=== PATIENT | male | born 1995 | race African-American/Black ===

== ENCOUNTER 2019-06-03 21:45 | Emergency (ER) | payer OTHER ==
[~2019-06-03] VITALS: Ht 167.6 cm; Wt 93.0 kg
[2019-06-03] MEDS ORDERED: PROAIR HFA8.5 GM INH ×2 (21:51→22:53)
[2019-06-03] MEDS ORDERED: FLOVENT DISKUS50 MCG INH (21:52)
[2019-06-03] MEDS ORDERED: PREDNISONE50 MG PO (22:53)
[2019-06-03 23:02] VITALS: BP 124/45
--- NOTE | 2019-06-04 19:16 | EKG ---
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[place] : 1995 Requested By: Weston Garza Order Number: [id number] MD: Yeison Do Measurements Intervals [place] Rate: 84 P: 64 WI: 169 QRS: 66 QRSD: 109 T: 39 QT: 359 QTc: 425 Interpretive Statements Sinus rhythm RSR' in V1 or V2, right VCD ST elevation early repolarization, less likely pericarditis Baseline wander in lead(s) V2,V6 No previous ECG available for comparison Electronically Signed On 06-04-2019 19:15:56 FOREIGN CORRESPONDENT by Yeison Do [email or web address] <ELECTRONICALLY SIGNED> By: Yeison Do MD, [facility] 06/04/191914 51 51 Yeison Do MD, [facility] /EPI
== END 2019-06-03 23:06 | disposition home or self-care (01) ==
LOC: ER 21:45
DX: J45.909 Unspecified asthma, uncomplicated (principal); Z87.01 Personal history of pneumonia (recurrent)

== ENCOUNTER 2019-09-15 23:29 | Emergency (ER) | payer OTHER ==
[~2019-09-15] VITALS: Ht 165.1 cm; Wt 93.0 kg
[~2019-09-15 23:29] MED LIST: FLOVENT DISKUS50 MCG INH; PREDNISONE50 MG PO; PROAIR HFA8.5 GM INH
[2019-09-16 00:14] LABS: HEMOGLOBIN 15.5 gm/dL (14.0-18.0); MCV 87.7 fL (80.0-100.0); PLATELET COUNT 280 thou/uL (150-400); RBC 5.36 mil/uL (4.50-6.00); RDW 13.6 % (10.5-14.5)
[2019-09-16 00:14] LABS: URINE BILIRUBIN NEGATIVE (Negative); URINE BLOOD TRACE (Negative); URINE CLARITY CLEAR; URINE COLOR YELLOW; URINE GLUCOSE-RANDOM* NEGATIVE (Negative); URINE KETONES NEGATIVE (Negative); URINE LEUKOCYTES-REFLEX NEGATIVE (Negative); URINE NITRITE-REFLEX NEGATIVE (Negative); URINE PROTEIN (DIPSTICK) NEGATIVE (Negative); URINE SPECIFIC GRAVITY >= 1.030 (1.005-1.035)
[2019-09-16 00:21] LABS: CALCIUM 8.5 mg/dL (8.5-10.1); CREATININE 1.1 mg/dL (0.7-1.3); POTASSIUM 3.6 mmol/L (3.5-5.1)
[2019-09-16 00:27] LABS: ALBUMIN 3.8 g/dL (3.4-5.0); TOTAL BILIRUBIN 0.4 mg/dL (<0.1-1.0); TOTAL PROTEIN 7.4 g/dL (6.4-8.2)
[2019-09-16 00:40] LABS: ABSOLUTE NEUTROPHILS 2.4 thou/uL (1.4-8.2)
[2019-09-16 01:03] VITALS: BP 107/50
[2019-09-16] MEDS ORDERED: IMODIUM A-D2 MG PO (01:06)
[2019-09-16] MEDS ORDERED: BENTYL 20 MG TA20 M1 PO (01:06)
== END 2019-09-16 01:16 | disposition home or self-care (01) ==
LOC: ER 23:29
PROVIDERS: Emergency Medicine
DX: R19.7 Diarrhea, unspecified (principal); J45.909 Unspecified asthma, uncomplicated; Z90.89 Acquired absence of other organs; Z91.013 Allergy to seafood

== ENCOUNTER 2020-04-06 01:26 | Emergency (ER) | payer OTHER ==
[~2020-04-06] VITALS: Ht 165.1 cm; Wt 93.4 kg
[~2020-04-06 01:26] MED LIST changes: +BENTYL 20 MG TA20 M1 PO; +IMODIUM A-D2 MG PO
[2020-04-06] MEDS ORDERED: SINGULAIR 10 MG10 M1 PO (01:34)
[2020-04-06] MEDS ORDERED: PREDNISONE 20 M20 MG PO (02:20)
[2020-04-06] MEDS ORDERED: VENTOLIN HFA 1818 GM INH (02:20)
[2020-04-06 02:39] VITALS: BP 123/69
== END 2020-04-06 02:48 | disposition home or self-care (01) ==
LOC: ER 01:26
DX: J45.901 Unspecified asthma with (acute) exacerbation (principal); E66.9 Obesity, unspecified; Z90.89 Acquired absence of other organs; Z79.899 Other long term (current) drug therapy; Z91.013 Allergy to seafood; Z68.34 Body mass index [BMI] 34.0-34.9, adult

== ENCOUNTER 2020-05-03 05:08 | Emergency (ER) | payer OTHER ==
[~2020-05-03] VITALS: Ht 165.1 cm; Wt 93.0 kg
[~2020-05-03 05:08] MED LIST changes: +PREDNISONE 20 M20 MG PO; +SINGULAIR 10 MG10 M1 PO; +VENTOLIN HFA 1818 GM INH
[2020-05-03] MEDS ORDERED: PREDNISONE 20 M20 MG PO (05:56)
[2020-05-03 06:14] VITALS: BP 146/74
== END 2020-05-03 07:27 | disposition home or self-care (01) ==
LOC: ER 05:08
DX: J45.901 Unspecified asthma with (acute) exacerbation (principal); Z79.899 Other long term (current) drug therapy; Z91.013 Allergy to seafood; Z20.828 Contact with and (suspected) exposure to other viral communicable diseases

== ENCOUNTER 2020-08-23 02:17 | Emergency (ER) | payer OTHER ==
[~2020-08-23] VITALS: Ht 165.1 cm; Wt 93.0 kg
[2020-08-23 02:19] VITALS: BP 150/76
[2020-08-23] MEDS ORDERED: SYMBICORT160 MCG/4. INH (02:22)
[2020-08-23] MEDS ORDERED: PREDNISONE50 MG PO (02:39)
[2020-08-23] MEDS ORDERED: PROAIR HFA8.5 GM INH (02:39)
== END 2020-08-23 03:16 | disposition home or self-care (01) ==
LOC: ER 02:17
DX: J45.901 Unspecified asthma with (acute) exacerbation (principal); Z79.899 Other long term (current) drug therapy; Z91.013 Allergy to seafood

== ENCOUNTER 2021-02-04 20:05 | Emergency (ER) | payer OTHER ==
[~2021-02-04] VITALS: Ht 165.1 cm; Wt 99.8 kg
[~2021-02-04 20:05] MED LIST changes: +SYMBICORT160 MCG/4. INH
[2021-02-04 21:09] LABS: BASOPHILS 0.7 % (0.0-2.0); EOSINOPHILS 5.5 % (0.0-3.0); HEMATOCRIT 45.6 % (42.0-52.0); HEMOGLOBIN 15.6 gm/dL (14.0-18.0); LYMPHOCYTES 28.6 % (24.0-44.0); MCH 29.7 pg (26.0-34.0); MCHC 34.3 g/dL (28.0-37.0); MCV 86.7 fL (80.0-100.0); MONOCYTES 10.9 % (1.0-8.0); PLATELET COUNT 277 thou/uL (150-400); POLYS 54.3 % (36.0-66.0); RBC 5.26 mil/uL (4.50-6.00); WBC 7.4 thou/uL (4.0-11.0)
[2021-02-04 21:14] LABS: CALCIUM 8.7 mg/dL (8.5-10.1); POTASSIUM 4.5 mmol/L (3.5-5.1)
[2021-02-04 22:19] VITALS: BP 141/81
--- NOTE | 2021-02-05 11:41 | EKG ---
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 : 1995 Requested By: Chucho Hurtado Order Number: [id number] MD: Dario Rodriguez Measurements Intervals [place] Rate: 89 P: 15 CT: 161 QRS: 62 QRSD: 156 T: 32 QT: 359 QTc: 437 Interpretive Statements Sinus rhythm Right bundle branch block Baseline wander in lead(s) V3 Compared to ECG 06/03/2019 21:52:05 Right bundle-branch block now present ST (T wave) deviation no longer present Early repolarization no longer present Electronically Signed On 02-05-2021 11:41:04 CDT by Dario Rodriguez [email or web address] <ELECTRONICALLY SIGNED> By: Dario Rodriguez MD, [facility] 02/05/21 1141 39 39 Dario Rodriguez MD, [facility] /EPI
== END 2021-02-04 22:19 | disposition home or self-care (01) ==
LOC: ER 20:05
PROVIDERS: Emergency Medicine
DX: R53.83 Other fatigue (principal); G47.30 Sleep apnea, unspecified; Z79.899 Other long term (current) drug therapy; Z91.09 Other allergy status, other than to drugs and biological substances

== ENCOUNTER 2021-04-28 18:40 | Emergency (ER) | payer OTHER ==
[~2021-04-28] VITALS: Ht 167.6 cm; Wt 93.0 kg
[2021-04-28] MEDS ORDERED: PREDNISONE 20 M20 MG PO (21:30)
[2021-04-28] MEDS ORDERED: ALBUTEROL2.5 MG/3 M INH (21:30)
[2021-04-28 21:38] VITALS: BP 122/88
== END 2021-04-28 21:40 | disposition home or self-care (01) ==
LOC: ER 18:40
DX: J45.901 Unspecified asthma with (acute) exacerbation (principal); Z20.822 Contact with and (suspected) exposure to COVID-19; F12.90 Cannabis use, unspecified, uncomplicated; Z91.09 Other allergy status, other than to drugs and biological substances; Z90.49 Acquired absence of other specified parts of digestive tract; Z79.51 Long term (current) use of inhaled steroids; Z79.899 Other long term (current) drug therapy; Z91.013 Allergy to seafood

== ENCOUNTER 2021-09-09 22:55 | Emergency (ER) | payer OTHER ==
[~2021-09-09] VITALS: Ht 165.1 cm; Wt 90.7 kg
[~2021-09-09 22:55] MED LIST changes: +ALBUTEROL2.5 MG/3 M INH
[2021-09-10 00:37] VITALS: BP 110/62
== END 2021-09-10 00:50 | disposition home or self-care (01) ==
LOC: ER 22:55
PROVIDERS: Student in an Organized Health Care Education/Training Program
DX: J06.9 Acute upper respiratory infection, unspecified (principal); Z20.822 Contact with and (suspected) exposure to COVID-19; J45.909 Unspecified asthma, uncomplicated; Z90.89 Acquired absence of other organs; Z91.013 Allergy to seafood